=== PATIENT | female | born 1960 | race Caucasian/White ===

== ENCOUNTER 2021-04-14 06:29 | Day surgery (SDC) | payer MEDICARE, MEDICAID ==
[~2021-04-14] VITALS: Ht 165.1 cm; Wt 62.7 kg
[~2021-04-14 06:29] MED LIST: FOLI1TAB32 PO; HYDR25TA6 PO; LACT20SO13 PO; MULT-482 PO; OMEP20CA9 PO; PROP20TA PO; THIA100T67 PO
[2021-04-14] MEDS ORDERED: LIDOCAINE 1%, 20ML ONE (06:46)
[2021-04-14] MEDS ORDERED: MIDAZOLAM 1 MG/ML, 2ML ONE ×2 (06:46→07:34)
[2021-04-14] MEDS ORDERED: FENTANYL PF 100 MCG/2ML ONE ×2 (06:46→07:33)
[2021-04-14] MEDS ORDERED: NITROGLYCERIN 5 MG/ML, 10ML ONE (06:48)
[2021-04-14] MEDS ORDERED: Magnesium PO (07:12)
[2021-04-14] MEDS ORDERED: VITAMIN E PO (07:12)
[2021-04-14] MEDS ORDERED: VITAMIN A PO (07:12)
[2021-04-14] MEDS ORDERED: DIPH25CA61 PO (07:12)
[2021-04-14] MEDS ORDERED: TIZA4CAP PO (07:12)
[2021-04-14] MEDS ORDERED: ALPR0.25 PO (07:12)
[2021-04-14] MEDS ORDERED: ATOR20TA37 PO (07:12)
[2021-04-14] MEDS ORDERED: PRIM50TA34 PO (07:12)
[2021-04-14] MEDS ORDERED: TRAZ150T62 PO (07:12)
[2021-04-14] MEDS ORDERED: VITAMIN D3 PO (07:12)
[2021-04-14] MEDS ORDERED: TUMERIC PO (07:12)
[2021-04-14] MEDS ORDERED: VITAMIN B12 PO (07:12)
[2021-04-14] MEDS ORDERED: ASPI81TA45 PO (07:12)
[2021-04-14] MEDS ORDERED: FLUT50DI IH (07:12)
[2021-04-14] MEDS ORDERED: GABA300C PO (07:12)
[2021-04-14] MEDS ORDERED: VITAMIN B50 PO (07:12)
[2021-04-14] MEDS ORDERED: HYDR-2995 PO (07:12)
[2021-04-14] MEDS ORDERED: CELE100C PO (07:12)
[2021-04-14] MEDS ORDERED: METO25TA91 PO (07:12)
[2021-04-14] MEDS ORDERED: DULO60CA56 PO (07:12)
[2021-04-14] MEDS ORDERED: ESOM20CA PO (07:12)
[2021-04-14] MEDS ORDERED: CALCIUM PO (07:12)
[2021-04-14 07:15] VITALS: BP 120/84
[2021-04-14 07:29] LABS: BASOPHILS % (AUTO) 1 % (0-1); EOSINOPHILS % (AUTO) 3 % (1-7); LYMPHOCYTES % (AUTO) 27 % (22-44); MEAN CORPUSCULAR HEMOGLOBIN 34.8 pg (27.0-34.8); MEAN CORPUSCULAR HGB CONC 34.9 g/dL (32.4-35.8); MEAN PLATELET VOLUME 7.1 fL (7.4-10.4); MONOCYTES % (AUTO) 9 % (2-9); NEUTROPHILS % (AUTO) 61 % (42-75); PLATELET COUNT 201 x10^3/uL (130-400); RED BLOOD COUNT 4.08 x10^6/uL (3.82-5.3); RED CELL DISTRIBUTION WIDTH 12.4 % (9.6-15.2)
[2021-04-14 07:33] LABS: ANION GAP 5 mmol/L (5-15); CALCIUM 9.5 mg/dL (8.5-10.1); CHLORIDE 106 mmol/L (98-107); CREATININE 0.67 mg/dL (0.55-1.02)
[2021-04-14 07:34] LABS: INTERNATIONAL NORMALIZED RATIO 1.12 (0.93-1.1); PROTHROMBIN TIME 11.9 Seconds (9.6-11.5)
[2021-04-14] MEDS ORDERED: LIDOCAINE 2%, 20ML ONE (07:34)
[2021-04-14] MEDS ORDERED: POTASSIUM CHLORIDE 20 MEQ TAB.ER.PRT PO ONE ×2 (08:30→09:30)
[2021-04-14] MEDS ORDERED: POTASSIUM CHLORIDE 20 MEQ TAB.ER.PRT ONE (09:05)
== END 2021-04-14 10:28 | disposition home or self-care (01) ==
LOC: CACL 06:29
PROVIDERS: ATTEND Internal Medicine Cardiovascular Disease
DX: R93.1 Abnormal findings on diagnostic imaging of heart and coronary circulation (principal); Z53.8 Procedure and treatment not carried out for other reasons; E87.6 Hypokalemia; I10 Essential (primary) hypertension; F12.10 Cannabis abuse, uncomplicated; Z79.01 Long term (current) use of anticoagulants; Z79.82 Long term (current) use of aspirin; Z79.891 Long term (current) use of opiate analgesic; Z79.899 Other long term (current) drug therapy; Z80.3 Family history of malignant neoplasm of breast; Z82.49 Family history of ischemic heart disease and other diseases of the circulatory system
CPT/HCPCS: 36415; 80048; 85025; 85610; J2250; J3010

== ENCOUNTER 2021-05-09 08:41 | Day surgery (SDC) | payer MEDICARE, MEDICAID ==
[~2021-05-09] VITALS: Ht 165.1 cm; Wt 61.4 kg
[~2021-05-09 08:41] MED LIST changes: +ALPR0.25 PO; +ASPI81TA45 PO; +ATOR20TA37 PO; +CALCIUM PO; +CELE100C PO; +DIPH25CA61 PO; +DULO60CA56 PO; +ESOM20CA PO; +FLUT50DI IH; +GABA300C PO; +HYDR-2995 PO; +METO25TA91 PO; +Magnesium PO; +PRIM50TA34 PO; +TIZA4CAP PO; +TRAZ150T62 PO; +TUMERIC PO; +VITAMIN A PO; +VITAMIN B12 PO; +VITAMIN B50 PO; +VITAMIN D3 PO; +VITAMIN E PO
[2021-05-09] MEDS ORDERED: POTA20TA14 PO (09:39)
[2021-05-09 09:40] VITALS: BP 149/81
[2021-05-09 09:45] LABS: BASOPHILS % (AUTO) 1 % (0-1); EOSINOPHILS % (AUTO) 1 % (1-7); LYMPHOCYTES % (AUTO) 23 % (22-44); MEAN CORPUSCULAR HEMOGLOBIN 35.3 pg (27.0-34.8); MEAN CORPUSCULAR HGB CONC 35.4 g/dL (32.4-35.8); MEAN PLATELET VOLUME 7.1 fL (7.4-10.4); MONOCYTES % (AUTO) 6 % (2-9); NEUTROPHILS % (AUTO) 69 % (42-75); PLATELET COUNT 206 x10^3/uL (130-400); RED CELL DISTRIBUTION WIDTH 12.3 % (9.6-15.2)
[2021-05-09 09:55] LABS: ANION GAP 10 mmol/L (5-15); CALCIUM 9.5 mg/dL (8.5-10.1); CHLORIDE 104 mmol/L (98-107); CREATININE 0.66 mg/dL (0.55-1.02)
[2021-05-09] MEDS ORDERED: FENTANYL PF 100 MCG/2ML ONE (10:18)
[2021-05-09] MEDS ORDERED: VERAPAMIL 2.5 MG/ML, 2ML ONE (10:18)
[2021-05-09] MEDS ORDERED: HEPARIN 1,000 UNITS/ML, 10ML ONE (10:18)
[2021-05-09] MEDS ORDERED: LIDOCAINE-MPF 1%, 5ML ONE (10:18)
[2021-05-09] MEDS ORDERED: MIDAZOLAM 1 MG/ML, 2ML ONE ×2 (10:19→10:41)
[2021-05-09] MEDS ORDERED: SODIUM CHLORIDE 0.9% 1,000 ML IV SCH (11:00)
== END 2021-05-09 13:09 | disposition home or self-care (01) ==
LOC: CACL 08:41
PROVIDERS: ATTEND Internal Medicine Cardiovascular Disease
DX: R94.39 Abnormal result of other cardiovascular function study (principal); I10 Essential (primary) hypertension; F32.9 Major depressive disorder, single episode, unspecified; F41.1 Generalized anxiety disorder; E78.2 Mixed hyperlipidemia; F12.10 Cannabis abuse, uncomplicated; E66.3 Overweight; Z68.22 Body mass index [BMI] 22.0-22.9, adult; Z79.899 Other long term (current) drug therapy; Z79.82 Long term (current) use of aspirin; Z88.8 Allergy status to other drugs, medicaments and biological substances; Z98.890 Other specified postprocedural states
CPT/HCPCS: 36415; 80048; 85025; 93458; 99156; C1769; C1894; J1644; J2250; J3010; Q9967